=== PATIENT | male | born 1995 | race Two or more races ===

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

== ENCOUNTER 2018-09-23 17:44 | Emergency (ER) | payer MEDICAID ==
[~2018-09-23] VITALS: Ht 180.3 cm; Wt 106.6 kg
[~2018-09-23 17:44] MED LIST: GENTAK5 ML RIGHT EYE
[2018-09-23 18:07] VITALS: BP 130/80
--- NOTE | 2018-09-23 18:08 | NUR ---
ED Nurse Note: Patient walked in to ER c/o Rt shoulder pain without recent injury. pt reported 10. pt aao x4 and steady gait. skin clean and intact. calm and cooperative.
--- NOTE | 2018-09-23 18:27 | Emergency Room Report ---
History of Present Illness General Chief Complaint: Pain Source: Patient Present Illness HPI 23-year-old male presents to the emergency department complaining of acute onset of or out of 10 in severity sharp spasming pain in the right side of his upper back and between the shoulder blade since this morning. Patient reports he is right-handed and he has been doing a lot of typing on the computer lately for school. Patient denies trauma or fall he states he had some mild relief after stretching however his symptoms have returned. Denies paresthesias or weakness in the affected extremity. Denies dyspnea or shortness of breath denies cough or recent illness. Denies rashes or bruises. Allergies: Coded Allergies: No Known Allergies (Unverified , 11/30/16) Patient History Past Medical History: see triage record Past Surgical History: none Pertinent Family History: none Reviewed Nursing Documentation: PMH: Agreed; PSxH: Agreed Nursing Documentation-PMH Past Medical History: No Stated History Review of Systems All Other Systems: negative except mentioned in HPI Physical Exam Vital Signs Date Time Temp Pulse Resp B/P (MAP) Pulse Ox O2 Delivery O2 Flow Rate FiO2 09/23/18 17:47 97.9 95 20 95 Room Air 09/23/18 18:07 130/80 Sp02 EP Interpretation: reviewed, normal General Appearance: alert, GCS 15, non-toxic, mild distress Head: normocephalic, atraumatic Eyes: bilateral eye normal inspection, bilateral eye PERRL ENT: hearing grossly normal, normal voice Neck: full range of motion Respiratory: chest non-tender, lungs clear, normal breath sounds, no respiratory distress, no accessory muscle use, no wheezing, speaking full sentences Cardiovascular #1: regular rate, rhythm Musculoskeletal: back normal, gait/station normal, normal range of motion, tender - of the right trapezius and rhomboid muscles, no midline spinous process tenderness, no localized bony ttp Neurologic: alert, oriented x3, responsive, motor strength/tone normal, sensory intact, speech normal, other - no gross motor weakness. , grossly normal Psychiatric: judgement/insight normal Skin: normal color, no rash, warm/dry, well hydrated Medical Decision Making PA Attestation Dr. Klein is my supervising Physician whom patient management has been discussed with. Diagnostic Impression: Primary Impression: Muscle strain ER Course 23-year-old male presents to the emergency department complaining of acute onset of or out of 10 in severity sharp spasming pain in the right side of his upper back and between the shoulder blade since this morning. Patient reports he is right-handed and he has been doing a lot of typing on the computer lately for school. Patient denies trauma or fall he states he had some mild relief after stretching however his symptoms have returned. Denies paresthesias or weakness in the affected extremity. Denies dyspnea or shortness of breath denies cough or recent illness. Denies rashes or bruises. Ddx considered but are not limited to Fracture, dislocation, contusion, Sprain/ Strain/Spasm Vital signs: are WNL, pt. is afebrile H&PE are most consistent with muscle spasm / strain of the right trapezius and rhomboid muscles, no midline spinous process tenderness, no localized bony ttp to warrant imaging. normal lung auscultation. ORDERS: none required at this time. ED INTERVENTIONS: -Soma PO -Lidoderm TP -I do not identify an emergent condition at this time. With current presentation , pt. is stable for close outpatient follow up and conservative treatment. D/ w pt. to return promptly to ED with worsening or new symptoms.- Pt. verbalizes' understanding and agreement with proposed treatment plan. DISCHARGE: At this time pt. is stable for d/c to home. Will provide printed patient care instructions, and any necessary prescriptions. Care plan and follow up instructions have been discussed with the patient prior to discharge. Last Vital Signs Date Time Temp Pulse Resp B/P (MAP) Pulse Ox O2 Delivery O2 Flow Rate FiO2 09/23/18 18:07 97.9 79 20 130/80 95 Room Air Disposition: HOME, SELF-CARE Condition: Stable Scripts Ibuprofen* (MOTRIN*) 600 Mg Tablet 600 MG ORAL THREE TIMES A DAY, #30 TAB 0 Refills Prov: Odalis Mckeon 09/23/18 Lidocaine (Lidoderm) 1 Each Adh..patch 1 PATCH TOPIC DAILY, #30 PATCH 0 Refills Patch(es) may remain in place for up to 12 hours in any 24-hour period. Prov: Odalis Mckeon 09/23/18 Methocarbamol* (ROBAXIN-750*) 750 Mg Tablet 750 MG PO QID for 7 Days, #28 TAB 0 Refills Prov: Odalis Mckeon 09/23/18 Departure Forms: Return to School Return to School On: September 26, 2018 School Release Restrictions: No Sports or PE Return to Full Activity: September 26, 2018 Patient Instructions: Muscle Cramps and Spasms, [id number], Muscle Pain, Adult Additional Instructions: Take medications as directed. Follow up with a Primary Care Provider in 3-5 days, even if your symptoms have resolved. --Please review list of primary care clinics, if you do not already have a primary care provider Return sooner to ED if new symptoms occur, or current symptoms become worse. Do not drink alcohol, drive, or operate heavy machinery while taking Robaxin ( Muscle Relaxers) as this may cause drowsiness. - Please note that this Emergency Department Report was dictated using [employer] technology software, occasionally this can lead to erroneous entry secondary to interpretation by the dictation equipment. Odalis Mckeon September 23, 2018 18:27
[2018-09-23] MEDS ORDERED: LIDODERM700 M1 TOPIC (18:28)
[2018-09-23] MEDS ORDERED: IBUPROFEN600 MG ORAL (18:28)
[2018-09-23] MEDS ORDERED: ROBAXIN-750750 MG PO (18:28)
[2018-09-23 18:40] VITALS: BP 128/87
--- NOTE | 2018-09-23 18:42 | NUR ---
ER DISCHARGE NOTE: Patient is cleared to be discharged per ERPA, pt is aox4, on room air, with stable vital signs. pt was given dc and prescription instructions with return to school note, pt was able to verbalize understanding, pt id band removed. pt is able to ambulate with steady gait. pt took all belongings.
== END 2018-09-23 18:43 | disposition home or self-care (01) ==
LOC: EMR 18:30
DX: T14.8XXA Other injury of unspecified body region, initial encounter (principal); X58.XXXA Exposure to other specified factors, initial encounter; Y92.9 Unspecified place or not applicable; M62.830 Muscle spasm of back
CPT/HCPCS: 99282

== ENCOUNTER 2019-06-08 12:06 | Emergency (ER) | payer MEDICAID ==
[~2019-06-08] VITALS: Ht 180.3 cm; Wt 113.4 kg
[~2019-06-08 12:06] MED LIST changes: +IBUPROFEN600 MG ORAL; +LIDODERM700 M1 TOPIC; +ROBAXIN-750750 MG PO
[2019-06-08 12:22] VITALS: BP 121/74
--- NOTE | 2019-06-08 12:22 | NUR ---
ED Nurse Note: PT. WALKED IN TO ER. PT. STATED HE WAS DRIVING AND FELT DIZZY ABOUT AN HOUR AGO FROM NOW ACCOMPANIED WITH N/V. PT. REPORTED HAVING COUGH,AND RUNNY NOSE X 3 WEEKS NOW. PT. ALSO REPORTED
[2019-06-08 12:50] VITALS: BP_SYST 115; BP_SYST 117; BP_SYST 119; BP_DIAS 72; BP_DIAS 73; BP_DIAS 74
--- NOTE | 2019-06-08 13:21 | Emergency Room Report ---
History of Present Illness General Chief Complaint: Flu Like Symptoms Source: Patient Present Illness HPI 23 YO male c/o runny nose, nasal congestion, sneezing, dull 2/ 10 pressure in the right ear. hx of impacted cerumen. ST x 1 day. 1 episode of diarrhea this am. 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 He denies blood in the vomit or stool. He reports intermittent off-balance feeling. Denies vertigo. Pt. feels generalized fatigue and body aches. denies recent travel. UTD with vaccinations. No ill contacts. Denies rashes. Denies pmhx. denies fevers or chills. Denies CP, Palpitations, LOC, AMS, Changes in Vision, Sensation, paresthesias, or a sudden severe headache. Allergies: Coded Allergies: No Known Allergies (Unverified , 11/30/16) Patient History Past Medical History: see triage record Past Surgical History: none Pertinent Family History: none Immunizations: UTD Reviewed Nursing Documentation: PMH: Agreed; PSxH: Agreed Nursing Documentation-PMH Past Medical History: No Stated History Review of Systems All Other Systems: negative except mentioned in HPI Physical Exam Vital Signs Date Time Temp Pulse Resp B/P (MAP) Pulse Ox O2 Delivery O2 Flow Rate FiO2 06/08/19 12:18 97.2 80 19 121/74 (90) 96 Room Air Sp02 EP Interpretation: reviewed, normal General Appearance: no apparent distress, alert, GCS 15, non-toxic Head: normocephalic, atraumatic Eyes: bilateral eye normal inspection, bilateral eye PERRL ENT: hearing grossly normal, normal pharynx, normal voice, TMs + canals normal - right Canal has moderate cerumen, no impaction. TM's WNL, uvula midline, moist mucus membranes, nasal congestion, pharyngeal erythema, other - no exudates Neck: full range of motion, no meningismus, no bony tend Respiratory: chest non-tender, lungs clear, normal breath sounds, no respiratory distress, no accessory muscle use, no wheezing, speaking full sentences Cardiovascular #1: regular rate, rhythm, normal capillary refill Gastrointestinal: normal bowel sounds, non tender, soft, non-distended, no guarding Rectal: deferred Genitourinary: normal inspection Musculoskeletal: normal range of motion, gait/station normal, non-tender Neurologic: alert, motor strength/tone normal, oriented x3, sensory intact, responsive, speech normal, normal gait, no pronator, grossly normal, normal inspection, other - no nystagmus. unable to illicit dizziness. normal finger to nose. Psychiatric: judgement/insight normal Skin: no rash, normal color, warm/dry Lymphatic: no adenopathy Medical Decision Making PA Attestation Dr. Montgomery is my supervising physician whom pt. management has been discussed with. Diagnostic Impression: Primary Impression: Acute viral syndrome Additional Impression: Nasal congestion with rhinorrhea ER Course 23 YO male c/o runny nose, nasal congestion, sneezing, dull 2/ 10 pressure in the right ear. hx of impacted cerumen. ST x 1 day. 1 episode of diarrhea this am. 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 He denies blood in the vomit or stool. He reports intermittent off-balance feeling. Denies vertigo. Pt. feels generalized fatigue and body aches. denies recent travel. UTD with vaccinations. No ill contacts. Denies rashes. Denies pmhx. denies fevers or chills. Denies CP, Palpitations, LOC, AMS, Changes in Vision, Sensation, paresthesias, or a sudden severe headache. Ddx considered but are not limited to URI, pneumonia, PE, strep pharyngitis, meningitis. Vital signs: Pt. is afebrile, the remaining VS are WNL H&PE are most consistent with URI- no meningeal signs, oropharynx is not involved, no evidence of bacterial infection at this time. ORDERS: -EK NSR OrthoStatic VS: negative for orthostatic hypovolemia ED INTERVENTIONS: None required at this time. --PT. EDUCATION: Discussed antibiotic resistance with inappropriate prescribing of antibiotics for viral illnesses. Discussed signs and symptoms to indicate viral illness versus bacterial illness. DISCHARGE: At this time pt. is stable for d/c to home. Will provide printed patient care instructions, and any necessary prescriptions. Care plan and follow up instructions have been discussed with the patient prior to discharge. EKG Diagnostic Results EP Interpretation: Dr. Montgomery Rate: normal - 74 bpm Rhythm: NSR ST Segments: no acute changes ASA given to the pt in ED: No PA Scribe Text This Interpretation was scribed by CIARA Mckeon. Last Vital Signs Date Time Temp Pulse Resp B/P (MAP) Pulse Ox O2 Delivery O2 Flow Rate FiO2 06/08/19 12:22 80 19 Room Air 06/08/19 12:22 97.2 121/74 96 Status: improved Disposition: HOME, SELF-CARE Condition: Stable Scripts Naproxen* (NAPROXEN*) 500 Mg Tablet 500 MG ORAL TWICE A WEEK for 10 Days, #20 TAB 0 Refills Prov: Odalis Mckeon 06/08/19 Carbamide Peroxide (MURINE EAR WAX REMOVAL SYSTEM) 15 Ml Drops 15 ML OT TID, #15 ML Prov: Odalis Mckeon 06/08/19 Oxymetazoline Hcl* (ANEFRIN*) 15 Ml Mist 1 SPRAY NASAL TWICE A DAY for 3 Days, #15 SPRAY Prov: Odalis Mckeon 06/08/19 Loratadine/Pseudoephedrine (ALAVERT D-12 ALLERGY-SINUS TAB) 1 Each Tab.er.12h 1 TAB ORAL TWICE A DAY for 10 Days, #20 TAB Prov: Odalis Mckeon 06/08/19 Departure Forms: Return to School Return to School On: Jun 11, 2019 School Release Restrictions: None Other School Release Restrictions: May return Sooner if Symptoms have resolved. Return to Full Activity: Jun 11, 2019 Patient Instructions: Dizziness, [id number], Viral Respiratory Infection, [id number] Additional Instructions: Take medications as directed. Follow up with a Primary Care Provider in 3-5 days, even if your symptoms have resolved. --Please review list of primary care clinics, if you do not already have a primary care provider Return sooner to ED if new symptoms occur, or current symptoms become worse. - Please note that this Emergency Department Report was dictated using [employer]french professor technology software, occasionally this can lead to erroneous entry secondary to interpretation by the dictation equipment. Odalis Mckeon Jun 08, 2019 13:21
[2019-06-08] MEDS ORDERED: ANEFRIN15 ML NASAL (13:24)
[2019-06-08] MEDS ORDERED: ALAVERT D-12 A1 EACH ORAL (13:24)
[2019-06-08] MEDS ORDERED: NAPROXEN500 M2 ORAL (13:24)
[2019-06-08] MEDS ORDERED: MURINE EAR WAX15 ML OT (13:24)
[2019-06-08 13:39] VITALS: BP 122/70
--- NOTE | 2019-06-08 13:39 | NUR ---
ER DISCHARGE NOTE: Patient is cleared to be discharged per PA, pt is aox4, on room air, with stable vital signs. pt was given dc and prescription instructions, pt was able to verbalize understanding, pt id band removed. pt is able to ambulate with steady gait. pt took all belongings.
== END 2019-06-08 13:39 | disposition home or self-care (01) ==
LOC: EMR 13:13
DX: B34.9 Viral infection, unspecified (principal); R09.81 Nasal congestion; J34.89 Other specified disorders of nose and nasal sinuses
CPT/HCPCS: 99283